=== PATIENT | female | born 1995 | race American Indian/Alaskan Native ===

== ENCOUNTER 2017-09-10 18:13 | Emergency (ER) | payer SELFPAY ==
[2017-09-10] MEDS ORDERED: NACL 0.9% 1000 ML 1,000 ML IV ONE ×2 (18:35)
[2017-09-10] MEDS ORDERED: ZOFRAN IV ONE (18:36)
[2017-09-10] MEDS ORDERED: MORPHINE IV ONE ×2 (18:37→19:43)
[2017-09-10] MEDS ORDERED: BOOSTRIX IM ONE (18:41)
--- NOTE | 2017-09-10 18:53 | Emergency Department Report ---
- General Chief Complaint: Wound/Laceration Stated Complaint: ARM LACERATION Source: patient Mode of arrival: Ambulatory Limitations: No Limitations - History of Present Illness Initial Comments: Patient is a 21 years old female with no significant past medical history presented to the ER with laceration to the left wrist that happened just prior to arrival to the ER. Patient stated that she punched through a glass window. Patient denied any other injuries. She does not remember the last time she had a tetanus shot. Patient is complaining that she is unable to move her left 4th and fifth finger with loss of sensation. with visible tendon rupture. Patient presented with an obvious arterial bleed to the radial side just above the wrist. Bleeding controlled with pressure and ligation. Patient denied any suicidal attempt. IV fluid was started immediately. -: Sudden Extremity Location: Left: Forearm, Wrist Place: home Patient Tetanus UTD: No (tetanus shot given) Context: accidental Associated Symptoms: pain, loss of feeling/numbness, unable to move injured part. denies: suspect foreign body present, weakness followed by dizziness, nausea/vomiting, fever - Related Data Allergies Allergy/AdvReac Type Severity Reaction Status Date / Time No Known Allergies Allergy Unverified 09/10/17 18:33 ED Review of Systems ROS: Stated complaint: ARM LACERATION Other details as noted in HPI Comment: All other systems reviewed and negative Constitutional: denies: chills, fever Cardiovascular: denies: chest pain, palpitations, dyspnea on exertion Gastrointestinal: denies: abdominal pain, nausea ED Past Medical Hx - Past Medical History Previous Medical History?: Yes - Surgical History Past Surgical History?: Yes Additional Surgical History: Thyroid removal - Social History Smoking Status: Current Every Day Smoker Substance Use Type: Alcohol ED Physical Exam - General Limitations: No Limitations General appearance: alert, in distress (total patient) - Head Head exam: Present: atraumatic, normocephalic, normal inspection - Eye Eye exam: Present: normal appearance, PERRL - ENT ENT exam: Present: normal exam - Neck Neck exam: Present: normal inspection - Respiratory Respiratory exam: Present: normal lung sounds bilaterally. Absent: respiratory distress, wheezes, rales, rhonchi - Cardiovascular Cardiovascular Exam: Present: tachycardia - GI/Abdominal GI/Abdominal exam: Present: soft, normal bowel sounds. Absent: distended, tenderness, guarding, rebound, rigid, mass, bruit, pulsatile mass - Expanded Upper Extremity Exam Left Hand Wrist exam: Present: laceration, other (patient sustained a lacerations to the left wrist. First one is 2 cm with an obvious arterial bleed. The other one is 2 the left side deep involving tendon with obvious tendon rupture.) Neuro motor exam: Present: wrist extension intact. Absent: thumb opposition intact Neurosensory exam: Present: 2-point discrimination, radial nerve intact. Absent : ulnar nerve intact Vascular: Present: normal capillary refill ED Course Vital Signs 09/10/17 09/10/17 09/10/17 18:17 18:33 19:45 Temperature 98.3 F Pulse Rate 108 H 64 Respiratory 22 20 16 Rate Blood Pressure 116/72 121/54 [Right] O2 Sat by Pulse 99 96 Oximetry - Laceration /Wound Repair Left Wrist Wound Length (cm): 3 Wound's Depth, Shape: into muscle, irregular Wound Explored: no foreign body removed Betadine Prep?: Yes Anesthesia: 1% Lidocaine Wound Debrided: extensive Wound Repaired With: sutures Deep Layer Suture Size/Type: 5:0, chromic Sterile Dressing Applied?: Yes ED Medical Decision Making - Radiology Data Radiology results: report reviewed Referring Physician: TIM APARICIO Patient Name: EMILY DONATO Date of : 1995 Sex: Female Report Date: 2017-09-10 Report Status: Finalized Findings [facility] [address] [place] [address] XRay Report Signed Patient: EMILY DONATO MR#: [id number] : 1995 Acct:[id number] Age/Sex: 21 / F ADM Date: 09/10/17 Loc: ED Attending Dr: Ordering Physician: TIM APARICIO Date of Service: 09/10/17 Procedure(s): XR forearm LT Accession Number(s): [id number] cc: TIM APARICIO Fluoro Time In Minutes: FINAL REPORT PROCEDURE: XR FOREARM LT TECHNIQUE: LEFT forearm radiographs, AP and lateral views. CPT 76946 HISTORY: Trauma/laceration. COMPARISON: No prior studies are available for comparison. FINDINGS: Fracture (s) and/or Dislocation(s): None . Joint space(s): Normal . Soft tissues: Large soft tissue laceration about ulnar extending to the radial wrist and possibly dorsal aspect of the left wrist, suboptimal lateral view. Significant artifact on lateral view limits evaluation for foreign bodies. Bone mineralization: Normal . Foreign bodies: None . IMPRESSION: No radiographic evidence of displaced fracture. Findings concerning for large soft tissue laceration at the level of the wrist. Artifact overlying patient is significantly limits evaluation for radiopaque foreign bodies, as does suboptimal patient positioning. Recommend repeat radiographs when patient able. Transcribed By: MUNA Dictated By: BRENT MANLEY MD Electronically Authenticated By: BRENT MANLEY MD Signed Date/Time: 09/10/171908 DD/ 08 TD/TT: 09/10/171908 - Medical Decision Making Discussed with Dr. Thompson transfer. Dr. Muñoz accepted the patient to be transferred to [place] emergency room. Critical Care Time: Yes Critical care time in (mins) excluding proc time.: 30 Critical care attestation.: If time is entered above; I have spent that time in minutes in the direct care of this critically ill patient, excluding procedure time. ED Disposition Clinical Impression: Laceration of wrist, left Disposition: DC/TX-70 ANOTHER TYPE HLTHCARE Is pt being admited?: No Condition: Stable Referrals: PRIMARY CAREMD [Primary Care Provider] - 3-5 Days
--- NOTE | 2017-09-10 19:14 | XRay Report ---
FINAL REPORT PROCEDURE: XR FOREARM LT TECHNIQUE: LEFT forearm radiographs, AP and lateral views. CPT 21370 HISTORY: Trauma/laceration. COMPARISON: No prior studies are available for comparison. FINDINGS: Fracture (s) and/or Dislocation(s): None . Joint space(s): Normal . Soft tissues: Large soft tissue laceration about ulnar extending to the radial wrist and possibly dorsal aspect of the left wrist, suboptimal lateral view. Significant artifact on lateral view limits evaluation for foreign bodies. Bone mineralization: Normal . Foreign bodies: None . IMPRESSION: No radiographic evidence of displaced fracture. Findings concerning for large soft tissue laceration at the level of the wrist. Artifact overlying patient is significantly limits evaluation for radiopaque foreign bodies, as does suboptimal patient positioning. Recommend repeat radiographs when patient able.
[2017-09-10] MEDS ORDERED: ceFAZolin 2 GM in NACL 0.9% 100 ML IV ONE (19:31)
[2017-09-10 19:46] VITALS: BP 121/54
[2017-09-10] MEDS ORDERED: ANCEF/STERILE WATER 2 GM/20 ML 2 GM/20 ML SYRINGE IV ONE (20:00)
== END 2017-09-10 20:31 | disposition other institution (70) ==
LOC: ED 18:13
DX: S61.512A Laceration without foreign body of left wrist, initial encounter (principal); F17.200 Nicotine dependence, unspecified, uncomplicated; Z90.89 Acquired absence of other organs; W45.8XXA Other foreign body or object entering through skin, initial encounter; Y93.89 Activity, other specified; Y99.8 Other external cause status; Y92.099 Unspecified place in other non-institutional residence as the place of occurrence of the external cause
CPT/HCPCS: 12032; 73090; 90471; 90715; 96361; 96374; 96375; 96376; 99291; J0690; J2270; J2405; J7030